=== PATIENT | male | born 1990 | race African-American/Black ===

== ENCOUNTER → 2016-10-24 | Outpatient (CLI) | payer OTHER ==
[2016-03-23 16:30] VITALS: BP 140/91
[~2016-10-24] MED LIST: AMLO10TA2 PO; AMLO10TA4 PO; CALC500T54 PO; INSU100I17 SQ; MYCO360T PO; NPH,100V5 SQ; PRED10TA16 PO; SEVE800T9 PO; TACR1CAP4 PO; magic mouth wash
== END | disposition home or self-care (01) ==
LOC: LAB 12:05
PROVIDERS: ATTEND Internal Medicine Nephrology
DX: N18.6 End stage renal disease (principal); D64.9 Anemia, unspecified; E55.9 Vitamin D deficiency, unspecified
CPT/HCPCS: 36415; 84132

== ENCOUNTER 2018-10-17 18:46 | Emergency (ER) | payer OTHER ==
[~2018-10-17] VITALS: Ht 162.6 cm; Wt 61.2 kg
[~2018-10-17 18:46] MED LIST changes: -AMLO10TA2 PO; +AMLO10TA8 PO
[2018-10-17 18:50] VITALS: BP 93/54
--- NOTE | 2018-10-17 19:13 | PHYS DOC ---
Past History Past Medical History: Hypertension, Renal Disease Additional Past Medical Histor: HTN on no meds. Kidney failure/transplant 2008. Past Surgical History: Other Additional Past Surgical Histo: Kidney transplant 2008 Smoking: Greater than 1 pack/day Alcohol Use: None Drug Use: Marijuana Adult General Chief Complaint Chief Complaint: FINGER INJURY HPI HPI 28-year-old male presents with left fifth digit pain. The patient woke up this morning with pain in his left little finger. He cannot think of any trauma or overuse from the day before. It is painful to extend it fully. He is able to move the finger. He feels like it is swollen compared to the other hand. She has not had anything like this before. No previous history with this finger. He denies any other complaints. Review of Systems Review of Systems Constitutional: Denies fever or chills [] Eyes: Denies change in visual acuity, redness, or eye pain [] HENT: Denies nasal congestion or sore throat [] Respiratory: Denies cough or shortness of breath [] Cardiovascular: No additional information not addressed in HPI [] GI: Denies abdominal pain, nausea, vomiting, bloody stools or diarrhea [] : Denies dysuria or hematuria [] Musculoskeletal: Left fifth digit pain[] Integument: Denies rash or skin lesions [] Neurologic: Denies headache, focal weakness or sensory changes [] Endocrine: Denies polyuria or polydipsia [] All other systems were reviewed and found to be within normal limits, except as documented in this note. Allergies Allergies Allergies Coded Allergies Type Severity Reaction Last Updated Verified iodine Allergy Unknown "I can't remember." 04/30/13 Yes shellfish derived Allergy Unknown 03/27/14 Yes Physical Exam Physical Exam Constitutional: Well developed, well nourished, no acute distress, non-toxic appearance. [] HENT: Normocephalic, atraumatic, bilateral external ears normal, oropharynx moist, no oral exudates, nose normal. [] Eyes: PERRLA, EOMI, conjunctiva normal, no discharge. [] Neck: Normal range of motion, no tenderness, supple, no stridor. [] Cardiovascular:Heart rate regular rhythm, no murmur [] Lungs & Thorax: Bilateral breath sounds clear to auscultation [] Abdomen: Bowel sounds normal, soft, no tenderness, no masses, no pulsatile masses. [] Skin: Warm, dry, no erythema, no rash. [] Back: No tenderness, no CVA tenderness. [] Extremities: Pain with palpation of left fifth proximal segment of the phalanx. Mild swelling of the area. No obvious deformity.[] Neurologic: Alert and oriented X 3, normal motor function, normal sensory function, no focal deficits noted. [] Psychologic: Affect normal, judgement normal, mood normal. [] Current Patient Data Vital Signs Vital Signs Date Time Temp Pulse Resp B/P (MAP) Pulse Ox O2 Delivery O2 Flow Rate FiO2 10/17/18 18:50 98.3 95 18 99 Room Air EKG EKG [] Radiology/Procedures Radiology/Procedures [] Impressions: FINGER(S) LEFT History: Swelling and pain Comparison: None. Findings: 3 views of the left hand with attention to the fifth digit are submitted. No acute fracture, dislocation, radiopaque foreign body, aggressive bone destruction is identified. There is some soft tissue swelling. Impression: 1. No acute osseous abnormality is identified. Electronically signed by: Paco Cuellar MD (10/17/2018 7:29 PM) [facility] DICTATED AND SIGNED BY: PACO CUELLAR MD DATE: 10/17/181928 CC: LORE BARON DO; PCP,NO ~ Course & Med Decision Making Course & Med Decision Making Pertinent Labs and Imaging studies reviewed. (See chart for details) The patient's x-rays are negative for acute fracture or dislocation. I believe he sprained his finger somehow. I have advised that he mirella tape for comfort for a day or 2. He'll take ibuprofen for discomfort. He is stable for discharge at this time. [] Dragon Disclaimer Dragon Disclaimer This electronic medical record was generated, in whole or in part, using a voice recognition dictation system. Departure Departure: Impression: Primary Impression: Sprain of finger of left hand Disposition: 01 HOME, SELF-CARE Condition: STABLE Referrals: PCP,UNKNOWN (PCP) Patient Instructions: Finger Sprain, [id number] Problem Qualifiers Primary Impression: Sprain of finger of left hand Encounter type: initial encounter Finger: little finger Sprain of finger site: unspecified site Qualified Codes: S63.617A - Unspecified sprain of left little finger, initial encounter LORE BARON DO October 17, 2018 19:13
--- NOTE | 2018-10-17 19:32 | RAD ---
FINGER(S) LEFT History: Swelling and pain Comparison: None. Findings: 3 views of the left hand with attention to the fifth digit are submitted. No acute fracture, dislocation, radiopaque foreign body, aggressive bone destruction is identified. There is some soft tissue swelling. Impression: 1. No acute osseous abnormality is identified. Electronically signed by: Marco Seymour MD (10/17/2018 7:29 PM) [facility]
== END 2018-10-17 19:42 | disposition home or self-care (01) ==
LOC: ER 18:46
DX: S63.617A Unspecified sprain of left little finger, initial encounter (principal); I10 Essential (primary) hypertension; F17.200 Nicotine dependence, unspecified, uncomplicated; Z91.013 Allergy to seafood; Z88.8 Allergy status to other drugs, medicaments and biological substances; X58.XXXA Exposure to other specified factors, initial encounter; Y93.89 Activity, other specified; Y92.89 Other specified places as the place of occurrence of the external cause; Y99.8 Other external cause status
CPT/HCPCS: 73140; 99284

== ENCOUNTER 2019-01-06 22:48 | Emergency (ER) | payer MEDICAID, OTHER ==
[~2019-01-06] VITALS: Ht 162.6 cm; Wt 61.2 kg
[2019-01-06 23:02] VITALS: BP 127/66
[2019-01-06] MEDS ORDERED: HYDR-3165 PO (23:17)
[2019-01-06] MEDS ORDERED: PENI500T PO (23:17)
[2019-01-06] MEDS ORDERED: ORPH-16 PO (23:17)
--- NOTE | 2019-01-06 23:17 | PHYS DOC ---
Past History Past Medical History: Renal Failure Additional Past Medical Histor: HTN on no meds. Kidney failure/transplant 2008. Past Surgical History: No Surgical History Additional Past Surgical Histo: Kidney transplant 2008 Smoking: Greater than 1 pack/day Alcohol Use: Occasionally Drug Use: Marijuana Adult General Chief Complaint Chief Complaint: SORE THROAT HPI HPI Patient is a 28-year-old male who presents with complaint of left-sided facial swelling, dental pain and sore throat been present for the last couple of days. He indicates the swelling has gotten worse today. He denies any fever. He denies any nausea or vomiting. He rates pain an 8 out of 10.[] Review of Systems Review of Systems Constitutional: Denies fever or chills [] HENT: Positive dental pain and sore throat [] Respiratory: Denies cough or shortness of breath [] Cardiovascular: No additional information not addressed in HPI [] Musculoskeletal: Complains of upper back pain [] Allergies Allergies Allergies Coded Allergies Type Severity Reaction Last Updated Verified iodine Allergy Unknown "I can't remember." 04/30/13 Yes shellfish derived Allergy Unknown 03/27/14 Yes Physical Exam Physical Exam Constitutional: Well developed, well nourished, no acute distress, non-toxic appearance. [] HENT: Normocephalic, atraumatic, dentition demonstrates caries in the right lower second molar with swelling of gums. [] Neck: Normal range of motion, no tenderness, supple, no stridor. [] Cardiovascular:Heart rate regular rhythm, no murmur [] Lungs & Thorax: Bilateral breath sounds clear to auscultation [] Back: There is tenderness to palpation with mild spasm noted in the trapezius musculature as well as upper thoracic paraspinals. [] Current Patient Data Vital Signs Vital Signs Date Time Temp Pulse Resp B/P (MAP) Pulse Ox O2 Delivery O2 Flow Rate FiO2 01/06/19 23:02 98.9 91 16 100 Room Air EKG EKG [] Radiology/Procedures Radiology/Procedures [] Course & Med Decision Making Course & Med Decision Making Pertinent Labs and Imaging studies reviewed. (See chart for details) [] Dragon Disclaimer Dragon Disclaimer This electronic medical record was generated, in whole or in part, using a voice recognition dictation system. Departure Departure: Impression: Primary Impression: Pain due to dental caries Additional Impression: Upper back pain Disposition: 01 HOME, SELF-CARE Condition: STABLE Referrals: PCP,NO (PCP) Patient Instructions: Back Pain, Adult, Dental Abscess, Dental Pain Scripts Orphenadrine Citrate (ORPHENADRINE CITRATE) 100 Mg Tablet.er 1 TAB PO BID PRN for MUSCLE SPASMS, #14 TAB Prov: LANG JOHNSON Jr. DO 01/06/19 Penicillin V Potassium (PENICILLIN V POTASSIUM) 500 Mg Tablet 1 TAB PO QID for infection, #40 TAB Prov: LANG JOHNSON Jr. DO 01/06/19 Hydrocodone Bit/Acetaminophen (NORCO 5-325 TABLET) 1 Each Tablet 1 TAB PO PRN Q6HRS PRN for PAIN, #12 TAB 0 Refills Prov: LANG JOHNSON Jr. DO 01/06/19 Problem Qualifiers LANG JOHNSON Jr. DO Jan 06, 2019 23:17
[2019-01-06] MEDS ORDERED: CLINDAMYCIN HCL 150 MG CAPSULE PO ONE (23:30)
[2019-01-06] MEDS ORDERED: HYDROcodone/APAP 7.5/325MG 1 TAB TABLET PO ONE (23:30)
[2019-01-06] MEDS ORDERED: CYCLOBENZAPRINE 10 MG TABLET. PO ONE (23:30)
== END 2019-01-06 23:43 | disposition home or self-care (01) ==
LOC: ER 22:48
DX: K02.9 Dental caries, unspecified (principal); M54.6 Pain in thoracic spine; J02.9 Acute pharyngitis, unspecified; I12.9 Hypertensive chronic kidney disease with stage 1 through stage 4 chronic kidney disease, or unspecified chronic kidney disease; N18.9 Chronic kidney disease, unspecified; F17.200 Nicotine dependence, unspecified, uncomplicated; Z94.0 Kidney transplant status; Z91.013 Allergy to seafood; Z88.8 Allergy status to other drugs, medicaments and biological substances
CPT/HCPCS: 99284

== ENCOUNTER 2019-05-09 09:31 | Emergency (ER) | payer MEDICAID ==
[~2019-05-09] VITALS: Ht 162.6 cm; Wt 59.0 kg
[~2019-05-09 09:31] MED LIST changes: +HYDR-3165 PO; +ORPH-16 PO; +PENI500T PO
[2019-05-09 09:44] VITALS: BP 147/63
[2019-05-09] MEDS ORDERED: HYDR10FO3 RC (09:59)
[2019-05-09] MEDS ORDERED: POLY119P4 PO (09:59)
[2019-05-09] MEDS ORDERED: TRAM50TA PO (09:59)
--- NOTE | 2019-05-09 10:00 | PHYS DOC ---
Past History Past Medical History: Renal Failure Additional Past Medical Histor: HTN on no meds. Kidney failure/transplant 2008. Past Surgical History: Other Additional Past Surgical Histo: Kidney transplant 2009, PARATHYROIDECTOMY Smoking: Greater than 1 pack/day Alcohol Use: Occasionally Drug Use: Marijuana Adult General Chief Complaint Chief Complaint: HEMORRHOIDS HPI HPI Patient is a 68-year-old male presents complaining of a hemorrhoid. The discomfort has been present for approximately the past week, getting worse over time. He has had to have internal hemorrhoids treated previously. He denies any blood. Increased pain with sitting. He reports sitting a large amount of each day, playing video games, seated on a wooden chair. Denies any trauma. Denies any anal receptive intercourse. Denies any rashes or bruising. He has taken no medicine for the discomfort. He is not on any blood thinners or NSAIDs at this time. Discomfort is moderate to severe in intensity. No radiation of the discomfort. 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 He has had previous kidney transplants. He is currently on dialysis, Sunday, , and Sunday.[] Review of Systems Review of Systems Constitutional: Denies fever or chills [] Eyes: Denies change in visual acuity, redness, or eye pain [] HENT: Denies nasal congestion or sore throat [] Respiratory: Denies cough or shortness of breath [] Cardiovascular: No chest pain or palpitations[] GI: Denies abdominal pain, nausea, vomiting, bloody stools or diarrhea, see history of present illness [] : Denies dysuria or hematuria [] Musculoskeletal: Denies back pain or joint pain [] Integument: Denies rash or skin lesions [] Neurologic: Denies headache, focal weakness or sensory changes [] Endocrine: Denies polyuria or polydipsia [] All other systems were reviewed and found to be within normal limits, except as documented in this note. Allergies Allergies Allergies Coded Allergies Type Severity Reaction Last Updated Verified iodine Allergy Unknown "I can't remember." 04/30/13 Yes shellfish derived Allergy Unknown 03/27/14 Yes Physical Exam Physical Exam Constitutional: Well developed, well nourished, no acute distress, non-toxic appearance. [] HENT: Normocephalic, atraumatic, bilateral external ears normal, oropharynx moist, no oral exudates, nose normal. [] Eyes: PERRLA, EOMI, conjunctiva normal, no discharge. [] Neck: Normal range of motion, no tenderness, supple, no stridor. [] Cardiovascular:Heart rate regular rhythm, no murmur [] Lungs & Thorax: Bilateral breath sounds clear to auscultation [] Abdomen: Bowel sounds normal, soft, no tenderness, no masses, no pulsatile masses. Rectal exam shows an external hemorrhoid at the 4 to 5:00 region. No thrombosis. No bleeding. No fistula tracts. [] Skin: Warm, dry, no erythema, no rash. [] Back: No tenderness, no CVA tenderness. [] Extremities: No tenderness, no cyanosis, no clubbing, ROM intact, no edema. [] Neurologic: Alert and oriented X 3, normal motor function, normal sensory function, no focal deficits noted. [] Psychologic: Affect normal, judgement normal, mood normal. [] Current Patient Data Vital Signs Vital Signs Date Time Temp Pulse Resp B/P (MAP) Pulse Ox O2 Delivery O2 Flow Rate FiO2 05/09/19 09:44 97.7 112 18 98 Room Air EKG EKG [] Radiology/Procedures Radiology/Procedures [] Course & Med Decision Making Course & Med Decision Making Pertinent Labs and Imaging studies reviewed. (See chart for details) Emergency department course: Patient arrived, was placed in bed, and tolerated exam well. Findings and plan were discussed with the patient who voiced understanding. All questions were answered. He was discharged in improved condition. Medical decision making: Patient appears to have an external hemorrhoid without thrombosis. Will prescribe medication along with education for hemorrhoid treatment. No evidence of intra-abdominal pathology. No evidence of bleeding diathesis.[] Dragon Disclaimer Dragon Disclaimer This electronic medical record was generated, in whole or in part, using a voice recognition dictation system. Departure Departure: Impression: Primary Impression: External hemorrhoids without complication Disposition: HOME, SELF-CARE Condition: IMPROVED Referrals: PCP,JIN (PCP) Patient Instructions: Hemorrhoids, Sitz Bath Additional Instructions: Follow-up with your regular doctor in 2 days. If you do not have regular doctor list of local clinics will be provided. Perform a sitz bath after each bowel movement, and at least 4 times a day. Increase the fiber in your diet or use the MiraLAX as prescribed to avoid constipation and bearing down when having a bowel movement because that will make hemorrhoids worse. Sit on a donut ring to help take pressure off of the area. Return to the ER if worsening pain, increased bleeding, or any other concerns. Scripts Polyethylene Glycol 3350 (MIRALAX) 119 Gm Powder 17 GM PO DAILY for constipation, #255 GM 0 Refills dissolve in water Prov: MEDHAT LUJAN DO 05/09/19 Tramadol Hcl (TRAMADOL HCL) 50 Mg Tablet 50 MG PO PRN Q6HRS PRN for PAIN, #20 TAB Prov: MEDHAT LUJAN DO 05/09/19 Hydrocortisone/Pramoxine (PROCTOFOAM-HC 1%-1% FOAM) 10 Gm Foam 1 APPFUL RC BID for hemorrhoids, #10 GM 1 Refill Prov: MEDHAT LUJAN DO 05/09/19 MEDHAT LUJAN DO May 09, 2019 10:00
== END 2019-05-09 10:05 | disposition home or self-care (01) ==
LOC: ER 09:31
DX: K64.4 Residual hemorrhoidal skin tags (principal); I12.0 Hypertensive chronic kidney disease with stage 5 chronic kidney disease or end stage renal disease; N18.6 End stage renal disease; F17.200 Nicotine dependence, unspecified, uncomplicated; Z99.2 Dependence on renal dialysis; Z94.0 Kidney transplant status; Z88.8 Allergy status to other drugs, medicaments and biological substances; Z91.018 Allergy to other foods
CPT/HCPCS: 99283

== ENCOUNTER → 2019-07-14 | Outpatient (CLI) | payer MEDICAID ==
[~2019-07-14] MED LIST changes: +HYDR10FO3 RC; +POLY119P4 PO; +TRAM50TA PO
== END | disposition home or self-care (01) ==
LOC: LAB 08:34
PROVIDERS: ATTEND Internal Medicine Nephrology
DX: Z01.818 Encounter for other preprocedural examination (principal)
CPT/HCPCS: 36415; 84132

== ENCOUNTER 2019-10-12 07:36 | Emergency (ER) | payer MEDICARE, MEDICAID ==
[~2019-10-12] VITALS: Ht 162.6 cm; Wt 59.0 kg
[~2019-10-12 07:36] MED LIST changes: -TACR1CAP4 PO; +TACR1CAP5 PO
[2019-10-12 07:39] VITALS: BP 119/51
[2019-10-12] MEDS ORDERED: HYDR25SU18 RC (07:58)
--- NOTE | 2019-10-12 07:58 | PHYS DOC ---
Past History Past Medical History: Renal Failure Additional Past Medical Histor: HTN on no meds. Kidney failure/transplant 2009. Past Surgical History: Other Additional Past Surgical Histo: Kidney transplant 2009, PARATHYROIDECTOMY Smoking: Greater than 1 pack/day Alcohol Use: Occasionally Drug Use: Marijuana General Adult EDM: Chief Complaint: HEMORRHOIDS HPI: HPI: Patient is a 29-year-old male with history of hemorrhoids who presents today with a hemorrhoid that he states is been flaring up. In the past he has had cream but that has not worked he has had suppositories which he states in the past it worked well for him. He denies any bleeding. He denies any fever chills or sweats. He does state it is painful when he strains to have a bowel movement. [] Review of Systems: Review of Systems: Constitutional: Denies fever or chills Eyes: Denies change in visual acuity HENT: Denies nasal congestion or sore throat Respiratory: Denies cough or shortness of breath Cardiovascular: Denies chest pain or edema GI: Per HPI : Denies dysuria Musculoskeletal: Denies back pain or joint pain Integument: Denies rash Neurologic: Denies headache, focal weakness or sensory changes Endocrine: Denies polyuria or polydipsia Lymphatic: Denies swollen glands Psychiatric: Denies depression or anxiety Heart Score: Risk Factors: Risk Factors: DM, Current or recent (<one month) smoker, HTN, HLP, family history of CAD, obesity. Risk Scores: Score 0 - 3: 2.5% MACE over next 6 weeks - Discharge Home Score 4 - 6: 20.3% MACE over next 6 weeks - Admit for Clinical Observation Score 7 - 10: 72.7% MACE over next 6 weeks - Early Invasive Strategies Allergies: Allergies: Allergies Coded Allergies Type Severity Reaction Last Updated Verified iodine Allergy Unknown "I can't remember." 04/30/13 Yes shellfish derived Allergy Unknown 03/27/14 Yes Physical Exam: PE: Constitutional: Well developed, well nourished, no acute distress, non-toxic appearance. [] Cardiovascular:Heart rate regular rhythm, no murmur [] Lungs & Thorax: Bilateral breath sounds clear to auscultation [] Abdomen: He does have a small smaller than a marble sized nonthrombosed external hemorrhoid at 9:00. [] Skin: Warm, dry, no erythema, no rash. [] Back: No tenderness, no CVA tenderness. [] Extremities: No tenderness, no cyanosis, no clubbing, ROM intact, no edema. [] Neurologic: Alert and oriented X 3, normal motor function, normal sensory function, no focal deficits noted. [] Psychologic: Anxious [] Current Patient Data: Vital Signs: Vital Signs Date Time Temp Pulse Resp B/P (MAP) Pulse Ox O2 Delivery O2 Flow Rate FiO2 10/12/19 07:39 97.7 97 16 119/51 (73) 94 Room Air EKG: EKG: [] Radiology/Procedures: Radiology/Procedures: [] Course & Med Decision Making: Course & Med Decision Making Pertinent Labs and Imaging studies reviewed. (See chart for details) [] Dragon Disclaimer: Dragon Disclaimer: This electronic medical record was generated, in whole or in part, using a voice recognition dictation system. Departure Departure: Impression: Primary Impression: External hemorrhoids without complication Disposition: 01 HOME/RESIDENCE PRIOR TO ADM Condition: STABLE Referrals: PCP,NO (PCP) Patient Instructions: Hemorrhoids Scripts Hydrocortisone Acetate (ANUSOL-HC) 25 Mg Supp.rect 1 SUPP RC BID for hemorrhoids for 14 Days, #28 SUPP 0 Refills Prov: SANDEEP SANTACRUZ DO 10/12/19 SANDEEP SANTACRUZ DO October 12, 2019 07:58
== END 2019-10-12 08:00 | disposition home or self-care (01) ==
LOC: ER 07:36
DX: K64.4 Residual hemorrhoidal skin tags (principal); Z88.8 Allergy status to other drugs, medicaments and biological substances; Z91.013 Allergy to seafood; F17.200 Nicotine dependence, unspecified, uncomplicated; I12.9 Hypertensive chronic kidney disease with stage 1 through stage 4 chronic kidney disease, or unspecified chronic kidney disease; N18.9 Chronic kidney disease, unspecified
CPT/HCPCS: 99282

== ENCOUNTER 2020-05-03 18:35 | Emergency (ER) | payer MEDICARE, MEDICAID ==
[~2020-05-03] VITALS: Ht 165.1 cm; Wt 59.2 kg
[~2020-05-03 18:35] MED LIST changes: +AMLO-187 PO; -AMLO10TA8 PO; +HYDR25SU18 RC
--- NOTE | 2020-05-03 18:54 | PHYS DOC ---
Past History Past Medical History: Renal Failure Additional Past Medical Histor: HTN on no meds. Kidney failure/transplant 2009. Past Surgical History: Other Additional Past Surgical Histo: Kidney transplant 2009, PARATHYROIDECTOMY Smoking: Greater than 1 pack/day Alcohol Use: None Drug Use: Marijuana General Adult EDM: Chief Complaint: SHORTNESS OF BREATH HPI: HPI: History obtained from patient. Patient is a 29-year-old male with history of atrophic kidneys who presents with chief complaint of shortness of breath. He states that shortness of breath began yesterday. States it is gradual in onset. He states it seems to be progressively worsening. Denies any chest pain. Denies orthopnea or bendopnea. Does receive dialysis on Mondays, Wednesdays, and Fridays. Did receive full dialysis treatment today. Denies cough or fever. Denies known exposure to Covid. Has had fluid on his lungs in the past. Denies any recent surgeries. Does note he smokes marijuana occasionally. Denies any abdominal pain or nausea. Denies vomiting. Eyes runny nose or sore throat. Denies history of pulmonary embolism. Denies syncope. Denies any exertional component to her shortness of breath that he states. Denies recent travel. Patient denies any history of immobilization greater than 48 hours, recent hospitalizations, recent surgery, recent trauma, , oral contraceptive usage, hormone replacement therapy, air travel greater than 8 hours, recent infectious disease, or general deterioration of their overall condition. Review of Systems: Review of Systems: Constitutional: Denies fever or chills Eyes: Denies change in visual acuity HENT: Denies nasal congestion or sore throat Respiratory: Denies cough or shortness of breath Cardiovascular: Denies chest pain or edema GI: Denies abdominal pain, nausea, vomiting, bloody stools or diarrhea : Denies dysuria Musculoskeletal: Denies back pain or joint pain Integument: Denies rash Neurologic: Denies headache, focal weakness or sensory changes Endocrine: Denies polyuria or polydipsia Lymphatic: Denies swollen glands Psychiatric: Denies depression or anxiety Allergies: Allergies: Allergies Coded Allergies Type Severity Reaction Last Updated Verified iodine Allergy Unknown "I can't remember." 04/30/13 Yes shellfish derived Allergy Unknown 03/27/14 Yes Physical Exam: PE: Constitutional: Well developed, well nourished, no acute distress, non-toxic appearance. [] HENT: Normocephalic, atraumatic, bilateral external ears normal, oropharynx moist, no oral exudates, nose normal. [] Eyes: PERRLA, EOMI, conjunctiva normal, no discharge. [] Neck: Normal range of motion, no tenderness, supple, no stridor. [] Cardiovascular:Heart rate regular rhythm, no murmur. Left upper extremity fistula with audible bruit and palpable thrill. [] Lungs & Thorax: Bilateral breath sounds clear to auscultation [] Abdomen: Bowel sounds normal, soft, no tenderness, no masses, no pulsatile masses. [] Skin: Warm, dry, no erythema, no rash. [] Back: No tenderness, no CVA tenderness. [] Extremities: No tenderness, no cyanosis, no clubbing, ROM intact, no edema. [] Neurologic: Alert and oriented X 3, normal motor function, normal sensory function, no focal deficits noted. [] Psychologic: Affect normal, judgement normal, mood normal. [] Current Patient Data: Labs: Laboratory Tests Test 05/03/20 19:02 White Blood Count 4.0 x10^3/uL Red Blood Count 3.97 x10^6/uL Hemoglobin 12.0 g/dL Hematocrit 38.0 % Mean Corpuscular Volume 96 fL Mean Corpuscular Hemoglobin 30 pg Mean Corpuscular Hemoglobin Concent 32 g/dL Red Cell Distribution Width 15.9 % Platelet Count 182 x10^3/uL Neutrophils (%) (Auto) 57 % Lymphocytes (%) (Auto) 24 % Monocytes (%) (Auto) 10 % Eosinophils (%) (Auto) 9 % Basophils (%) (Auto) 0 % Neutrophils # (Auto) 2.2 x10^3uL Lymphocytes # (Auto) 0.9 x10^3/uL Monocytes # (Auto) 0.4 x10^3/uL Eosinophils # (Auto) 0.0 x10^3/uL Basophils # (Auto) 0.0 x10^3/uL Sodium Level 142 mmol/L Potassium Level 3.1 mmol/L Chloride Level 98 mmol/L Carbon Dioxide Level 31 mmol/L Anion Gap 13 Blood Urea Nitrogen 24 mg/dL Creatinine 11.3 mg/dL Estimated GFR (Cockcroft-Gault) 6.6 BUN/Creatinine Ratio 2 Glucose Level 83 mg/dL Calcium Level 7.8 mg/dL Total Bilirubin 0.5 mg/dL Aspartate Amino Transf (AST/SGOT) 14 U/L Alanine Aminotransferase (ALT/SGPT) 13 U/L Alkaline Phosphatase 44 U/L Total Protein 8.6 g/dL Albumin 4.4 g/dL Albumin/Globulin Ratio 1.0 Current Medications Medications (Trade) Dose Ordered Sig/Jovani Route PRN Reason Start Time Stop Time Status Last Admin Dose Admin Iohexol (Omnipaque 350 Mg/ml) 100 ml 1X ONCE IV 05/03/20 19:00 05/03/20 19:01 DC 05/03/20 20:00 Diphenhydramine HCl (Benadryl) 25 mg 1X ONCE IVP 05/03/20 19:00 05/03/20 19:01 DC 05/03/20 19:21 Vital Signs: Vital Signs Date Time Temp Pulse Resp B/P (MAP) Pulse Ox O2 Delivery O2 Flow Rate FiO2 05/03/20 18:43 98.2 107 16 94/56 (69) 97 Room Air EKG: EKG: EKG consistent with normal sinus rhythm. Ventricular rate of 86 bpm. [place] normal. Intervals normal. No acute ischemic changes appreciated. [] Radiology/Procedures: Radiology/Procedures: [place] [id number] IMAGING REPORT Signed PATIENT: CHARLES MOTTA ACCOUNT: [id number] : 1990 LOCATION: ER AGE: 29 SEX: M EXAM STATUS: REG ER ORD. PHYSICIAN: TJ CAAL DO REASON: SOB. r/o PE, OMNI 350, 75ml PROCEDURE: CT ANGIOGRAPHY CHEST Exam: CT of chest with contrast INDICATION: Shortness of breath TECHNIQUE: Sequential axial images through the chest obtained following the administration of 75 mL of Omni 350 IV contrast. Sagittal and coronal reformatted images were reconstructed from the axial data and reviewed. 3-D reformatted images were reconstructed from the axial data and reviewed. Comparisons: None FINDINGS: Utilized portions of the thyroid are unremarkable. There are several prominent mildly enlarged prevascular and pretracheal lymph nodes. Heart size is normal. No pericardial effusion. Thoracic aorta has a normal course and caliber. Pulmonary artery is not enlarged. There is a stent noted within the SVC which is occluded. Extensive venous collateral vasculature noted in the right paraspinal soft tissues extending to the azygos vein. Additionally numerous collateral vessels noted along the right anterior chest wall. No pulmonary embolus identified within the main, lobar or segmental pulmonary arteries. Airways are patent. No consolidation or pneumothorax. No suspicious lung nodules. No pleural effusion or thickening. Cholelithiasis. Kidneys are atrophic bilaterally. No suspicious osseous lesions or acute fractures. IMPRESSION: 1. No pulmonary embolus identified within the main, lobar or segmental pulmonary arteries. 2. Metallic stent noted within the SVC which is occluded. There is secondary collateral vasculature in the chest. 3. Cholelithiasis. 4. Atrophic appearance of the kidneys bilaterally. Correlate with kidney function/history. Exposure: One or more of the following in the visualized dose reduction techniques were utilized for this examination: 1. Automated exposure control 2. Adjustment of the MA and/or KV according to patient size 3. Use of iterative of reconstructive technique Electronically signed by: Cathy Liao MD (05/03/2020 8:28 PM) [facility] DICTATED AND SIGNED BY: CATHY LIAO MD DATE: 05/03/202027 CC: PCP,JIN; TJ CAAL DO ~MTH0 0 [] Heart Score: Risk Factors: Risk Factors: DM, Current or recent (<one month) smoker, HTN, HLP, family hist ory of CAD, obesity. Risk Scores: Score 0 - 3: 2.5% MACE over next 6 weeks - Discharge Home Score 4 - 6: 20.3% MACE over next 6 weeks - Admit for Clinical Observation Score 7 - 10: 72.7% MACE over next 6 weeks - Early Invasive Strategies Course & Med Decision Making: Course & Med Decision Making Pertinent Labs and Imaging studies reviewed. (See chart for details) [] Patient is a 29-year-old male who presents with chief complaint of shortness of breath that has began gradually over the past 2 days. Initial EKG without ischemic changes. CT imaging of his chest was obtained given he denies any infectious symptoms to explain his shortness of breath. This was negative for pulmonary emboli or effusions. Basic labs obtained were also unremarkable. He does have severely elevated creatinine but does receive dialysis 3 times weekly. Electrolytes within normal limits. On repeat examination patient states his symptoms have improved. He states he continues to have no chest pain at all. Covid swab was obtained and pending. No adventitious lung sounds on repeat examination. His vital signs remained stable including normal oxygenation on room air. Overall very low suspicion for ACS equivalent. He denies any history of coronary artery disease. Low risk heart score. Overall I do feel he is appropriate for discharge home with close follow-up. He was instructed return in 12 to 24 hours should his symptoms not improve or worsen. He did express understanding. Instructed to follow-up with his primary care physician in the next 2 to 3 days. Stable for discharge home. COVID-19 CRITERIA: The patient was evaluated during the global COVID-19 pandemic, and that diagnosis was suspected/considered upon their initial presentation. Their evaluation, treatment and testing was consistent with current guidelines for patients who present with complaints or symptoms that may be related to COVID-19. Dragon Disclaimer: Dragon Disclaimer: This electronic medical record was generated, in whole or in part, using a voice recognition dictation system. Departure Departure: Impression: Primary Impression: Shortness of breath Additional Impression: ESRD (end stage renal disease) Disposition: 01 DC HOME SELF CARE/HOMELESS Condition: STABLE Referrals: PCPJIN (PCP) NANNETTE PEREZ MD Patient Instructions: End Stage Kidney Disease Additional Instructions: You have been tested for or diagnosed with COVID-19. It is an infection caused by a new type of coronavirus. COVID-19 will cause cold-like or mild flu symptoms in most. It can cause more severe symptoms like problems breathing in some. There is no treatment for COVID-19. The body will clear the infection over time. Self-care will help to ease discomfort. Steps to Take: Self-Care Rest as needed. Healthy habits may help you feel better. Steps include: Choose healthy foods including fruits and vegetables. Drink water throughout the day. Get plenty of sleep each night. If you smoke, try to quit. It may ease breathing. Avoid alcohol. Keep Others Healthy The virus can spread to others. Droplets are released every time you sneeze or cough. The droplets can get into the mouth, nose, or eyes of people near you and lead to infection. To lower the chances of spreading COVID-19 to others: Stay at home until your doctor has said it is safe to leave. If you tested positive this will mean staying isolated until both of the following are true: At least 7 days have passed since the start of illness. You are free of fever for at least 72 hours without the use of medicine. During this time: - Avoid public areas, events, or transportation. Do not return to work or [email or web address] until your doctor has said it is safe to do so. - Call ahead if you need to go to a medical center. Let them know you may have COVID-19. It will help them guide you where to go. They may also ask you to wear a facemask when you come to the office. - If you call for emergency medical services, let them know you may have COVID- 19. While at home: - Try to avoid close contact with others. Stay about 6 feet away. - If possible, spend most of your time in a separate room from others. - Use a face mask if you will be in close contact with others such as sharing a room or vehicle. - Have someone wipe down common surfaces in the home. Use household welder production line arc every day on areas like doorknobs, counters, or sinks. - Cough or sneeze into a tissue. Throw the tissue away right after use. If a tissue is not available, cough or sneeze into your elbow. - Wash your hands often. Wash them after sneezing or coughing. Use soap and water and wash for at least 20 seconds. Alcohol based hand radiator cleaner can be used if soap and water is not available. - Do not prepare food for others. Avoid sharing personal items like forks, spoons, or toothbrushes. - Avoid close contact with pets while you are sick. There is no evidence of the virus passing to pets. This is a safety step until more is known about this virus. Isolation can be frustrating. Social interaction can help. Keep in touch with friends and family through phone and tech options. You can still interact with others in your home, just keep a safe distance of about 6 feet. Follow-up: Your doctors office will check in with you to see if there are any changes in your health. You may be asked to keep track of symptoms to share with them. They will also let you know when you are clear to be in public again. Problems to Look Out For: Contact your doctor if your recovery is not going as you expect. Get emergency care if you have problems such as: - Trouble breathing - Nonstop chest pain or pressure - Changes in awareness, confusion, or problems waking - Lips or face have bluish color - Worsening of symptoms If you think you have an emergency, call for emergency medical services right away. [facility] May 03, 2020 18:54
[2020-05-03] MEDS ORDERED: IOHEXOL 350 MG/ML 100 ML VIAL. IV ONE (19:00)
[2020-05-03] MEDS ORDERED: diphenhydrAMINE 50 MG/ML VIAL IVP ONE (19:00)
[2020-05-03 19:36] LABS: RED BLOOD COUNT 3.97 x10^6/uL (4.30-5.70)
[2020-05-03 19:37] LABS: BASO % 0 % (0-3); EOS % 9 % (0-3); LYMPH # 0.9 x10^3/uL (1.0-4.8); LYMPH % 24 % (24-48); MEAN CORPUSCULAR HEMOGLOBIN 30 pg (25-35); MEAN CORPUSCULAR HGB CONC 32 g/dL (31-37); MEAN CORPUSCULAR VOLUME 96 fL (79-100); MONO % 10 % (0-9); NEUT # 2.2 x10^3uL (1.8-7.7); NEUT % 57 % (31-73); PLATELET COUNT 182 x10^3/uL (140-400); RED CELL DISTRIBUTION WIDTH 15.9 % (11.5-14.5)
[2020-05-03 19:38] LABS: MONO # 0.4 x10^3/uL (0.0-1.1)
[2020-05-03 20:16] LABS: ALBUMIN 4.4 g/dL (3.4-5.0); CALCIUM 7.8 mg/dL (8.5-10.1); CREATININE 11.3 mg/dL (0.7-1.3); GFR 6.6; TOTAL BILIRUBIN 0.5 mg/dL (0.2-1.0); TOTAL PROTEIN 8.6 g/dL (6.4-8.2)
[2020-05-03 20:17] LABS: POTASSIUM 3.1 mmol/L (3.5-5.1)
--- NOTE | 2020-05-03 20:31 | RAD ---
Exam: CT of chest with contrast INDICATION: Shortness of breath TECHNIQUE: Sequential axial images through the chest obtained following the administration of 75 mL of Omni 350 IV contrast. Sagittal and coronal reformatted images were reconstructed from the axial data and reviewed. 3-D reformatted images were reconstructed from the axial data and reviewed. Comparisons: None FINDINGS: Utilized portions of the thyroid are unremarkable. There are several prominent mildly enlarged prevascular and pretracheal lymph nodes. Heart size is normal. No pericardial effusion. Thoracic aorta has a normal course and caliber. Pulmonary artery is not enlarged. There is a stent noted within the SVC which is occluded. Extensive venous collateral vasculature noted in the right paraspinal soft tissues extending to the azygos vein. Additionally numerous collateral vessels noted along the right anterior chest wall. No pulmonary embolus identified within the main, lobar or segmental pulmonary arteries. Airways are patent. No consolidation or pneumothorax. No suspicious lung nodules. No pleural effusion or thickening. Cholelithiasis. Kidneys are atrophic bilaterally. No suspicious osseous lesions or acute fractures. IMPRESSION: 1. No pulmonary embolus identified within the main, lobar or segmental pulmonary arteries. 2. Metallic stent noted within the SVC which is occluded. There is secondary collateral vasculature in the chest. 3. Cholelithiasis. 4. Atrophic appearance of the kidneys bilaterally. Correlate with kidney function/history. Exposure: One or more of the following in the visualized dose reduction techniques were utilized for this examination: 1. Automated exposure control 2. Adjustment of the MA and/or KV according to patient size 3. Use of iterative of reconstructive technique Electronically signed by: Cathy Monsalve MD (05/03/2020 8:28 PM) [facility]
[2020-05-03 20:59] VITALS: BP 104/57
--- NOTE | 2020-05-03 23:28 | EKG ---
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
== END 2020-05-03 21:03 | disposition home or self-care (01) ==
LOC: ER 18:35
DX: R06.02 Shortness of breath (principal); I12.0 Hypertensive chronic kidney disease with stage 5 chronic kidney disease or end stage renal disease; N18.6 End stage renal disease; F17.200 Nicotine dependence, unspecified, uncomplicated; F12.10 Cannabis abuse, uncomplicated; Z20.828 Contact with and (suspected) exposure to other viral communicable diseases; Z99.2 Dependence on renal dialysis; Z88.8 Allergy status to other drugs, medicaments and biological substances; Z91.013 Allergy to seafood
CPT/HCPCS: 36415; 71275; 80053; 85025; 85379; 93005; 96374; 99285; C9803; J1200; Q9967; U0003

== ENCOUNTER 2021-01-26 23:30 | Emergency (ER) | payer MEDICARE, MEDICAID ==
[~2021-01-26] VITALS: Ht 162.6 cm; Wt 59.0 kg
--- NOTE | 2021-01-27 00:48 | PHYS DOC ---
Past History Past Medical History: Renal Failure Additional Past Medical Histor: HTN on no meds. Kidney failure/transplantx2,last attempt 2008. Past Surgical History: Other Additional Past Surgical Histo: Kidney transplant 2009, PARATHYROIDECTOMY Smoking: Greater than 1 pack/day Alcohol Use: None Drug Use: Marijuana General Adult EDM: Chief Complaint: ABNORMAL LABS HPI: HPI: ".. My doctor office call said I should go to ED.. I missed my HD on Sun..." " My calcium was low... I get low calcium.. because of my para thyroids we taken out..." Patient is a 30 year old male who presents with hx of renal failure on hemodialysis and reports of low calcium on recent blood draw. Patient states his doctor office called and told him to go to the emergency department because of low calcium. Patient has history of chronic low calcium levels after parathyroidectomy. Patient supplements with oral calcium. Patient also has dialysis on Wednesdays and Fridays however he did not show up for his dialysis yesterday because he slept in. Patient normally follows at for his care. Patient does have a history of kidney transplant with kidney failure in 2008. Patient does continue to smoke approximately pack a day patient does use marijuana. Patient currently denies any nausea or vomiting. Patient denies any cramping of his muscles. Patient denies any fever or chills. Patient denies any history immunosuppression other than his underlying disease of renal failure. Patient has not had Covid vaccination. Patient has had previous episodes of hyperkalemia as well as pulmonary edema due to noncompliance with hemodialysis. Patient admits to noncompliance with meds as well as diet. Patient does continue to smoke tobacco and marijuana. Review of Systems: Review of Systems: Constitutional: Denies fever or chills Eyes: Denies change in visual acuity HENT: Denies nasal congestion or sore throat Respiratory: Complains of some mild increase of dyspnea which he attributes to missing his dialysis. Cardiovascular: Denies chest pain or edema GI: Denies abdominal pain, nausea, vomiting, bloody stools or diarrhea : Denies dysuria Musculoskeletal: Denies back pain or joint pain. Denies any cramping muscles Integument: Denies rash Neurologic: Denies headache, focal weakness or sensory changes Endocrine: Denies polyuria or polydipsia Lymphatic: Denies swollen glands Psychiatric: Denies depression or anxiety Family History: Family History: Noncontributory to presentation Current Medications: Current Meds: See nursing for home meds Allergies: Allergies: Allergies Coded Allergies Type Severity Reaction Last Updated Verified iodine Allergy Unknown "I can't remember." 04/30/13 Yes shellfish derived Allergy Unknown 03/27/14 Yes Physical Exam: PE: Constitutional: no acute distress, non-toxic appearance. [] HENT: Normocephalic, atraumatic, bilateral external ears normal, oropharynx moist, no oral exudates, nose normal. [] Eyes: PERRLA, EOMI, conjunctiva normal, no discharge. [] Neck: Normal range of motion, no tenderness, supple, no stridor. Extensive scarring to the neck and keloid formation. Cardiovascular:Heart rate regular rhythm, no murmur [] PMI slightly to the wrist Lungs & Thorax: Bilateral breath sounds equal with scattered wheezing and crackles throughout on auscultation [] Abdomen: Bowel sounds normal, soft, no tenderness, no masses, no pulsatile masses. [] Old surgical scars keloid formation Skin: Warm, dry, no erythema, no rash. Keloid formation Back: No tenderness, no CVA tenderness. [] Extremities: No tenderness, no cyanosis, no clubbing, ROM intact, no edema. Left arm AV shunt has good thrill. DTRs +2 patella and brachial. Keloid left groin Neurologic: Alert and oriented X 3, moves all extremities on request, does have distal sensory, no focal deficits noted. [] Psychologic: Affect anxious, judgement normal, mood normal. [] EKG: EKG: My interpretation of EKG at 00 55 hours shows a sinus rhythm rate of 70. With no acute morphology or findings of STEMI. Sinus rhythm. Time of EKG is 00 55 minutes. Radiology/Procedures: Radiology/Procedures: [][address] [address] IMAGING REPORT Signed PATIENT: CHARLES MOTTA ACCOUNT: [id number] : 1990 LOCATION: ER AGE: 30 SEX: M EXAM STATUS: DEP ER ORD. PHYSICIAN: CHRISTINA MCCOLLUM MD REASON: pul. edema PROCEDURE: PORTABLE CHEST 1V EXAM: XR CHEST 1V 01/27/2021 1:36 AM CLINICAL INDICATION: Pulmonary edema COMPARISON: Chest radiograph 07/24/2017 TECHNIQUE: AP upright view of the chest FINDINGS: The heart is normal in size. The lungs are adequately expanded. No consolidation, pleural effusion, or pneumothorax. No acute osseous abnormality. There is a vascular stent in the left upper extremity. IMPRESSION: No acute cardiopulmonary abnormality Electronically signed by: Princess White MD (01/27/2021 3:18 AM) [id number] DICTATED AND SIGNED BY: PRINCESS WHITE MD DATE: 01/27/21 0316 CC: CHRISTINA MCCOLLUM MD; PCP,UNKNOWN ~MTH0 0 Heart Score: C/O Chest Pain: N/A HEART Score for Chest Pain: HEART Score for Chest Pain Response (Comments) Value History Slighlty/Non-Suspicious 0 ECG Normal 0 Age < 45 0 Risk Factors 1 or 2 Risk Factors 1 Troponin < Normal Limit 0 Total 1 Risk Factors: Risk Factors: DM, Current or recent (<one month) smoker, HTN, HLP, family history of CAD, obesity. Risk Scores: Score 0 - 3: 2.5% MACE over next 6 weeks - Discharge Home Score 4 - 6: 20.3% MACE over next 6 weeks - Admit for Clinical Observation Score 7 - 10: 72.7% MACE over next 6 weeks - Early Invasive Strategies Course & Med Decision Making: Course & Med Decision Making Pertinent Labs and Imaging studies reviewed. (See chart for details) Patient did receive supplemental calcium IV as well as oral Tums. Patient refused to Kayexalate stating he would just go to the dialysis today. Patient informed of labs and need to complete dialysis , suspect he is starting to have some findings of pulmonary edema. Encourage patient to be more compliant with his dialysis regimen. Encourage patient stop smoking. Encourage to be compliant with meds and diet. Keep follow-up with primary care as well as nephrology. Encourage patient to get his hemodialysis today Patient continues calcium supplements previous directed. Impression: 1. Hypocalcemia of 6.4 2. Anemia hemoglobin 8.4 3. End-stage renal disease-on hemodialysis 4. Elevated BUN is 62 creatinine 19.3 5. Hyper magnesium 2.6 6. History of noncompliance meds, diet and dialysis follow-up [] Tasha Disclaimer: Tasha Disclaimer: This electronic medical record was generated, in whole or in part, using a voice recognition dictation system. Departure Departure: Referrals: PCP,UNKNOWN (PCP) Tasha Disclaimer This chart was dictated in whole or in part using Voice Recognition software in a busy, high-work load, and often noisy Emergency Department environment. It may contain unintended and wholly unrecognized errors or omissions. CHRISTINA MCCOLLUM MD Jan 27, 2021 00:48
[2021-01-27] MEDS: SODIUM POLYSTYRENE SULFONATE 15 GM/60 ML ORAL.SUSP. PO ONE (01:00)
[2021-01-27 01:09] LABS: BASO # 0.1 x10^3/uL (0.0-0.2); BASO % 3 % (0-3); EOS # 0.4 x10^3/uL (0.0-0.7); EOS % 9 % (0-3); HEMATOCRIT 26.1 % (39.0-53.0); HEMOGLOBIN 8.4 g/dL (13.0-17.5); LYMPH # 1.2 x10^3/uL (1.0-4.8); LYMPH % 27 % (24-48); MEAN CORPUSCULAR HEMOGLOBIN 31 pg (25-35); MEAN CORPUSCULAR HGB CONC 32 g/dL (31-37); MEAN CORPUSCULAR VOLUME 96 fL (79-100); MONO # 0.5 x10^3/uL (0.0-1.1); MONO % 12 % (0-9); NEUT # 2.1 x10^3uL (1.8-7.7); NEUT % 49 % (31-73); PLATELET COUNT 205 x10^3/uL (140-400); RED BLOOD COUNT 2.71 x10^6/uL (4.30-5.70); RED CELL DISTRIBUTION WIDTH 15.9 % (11.5-14.5); WHITE BLOOD COUNT 4.2 x10^3/uL (4.0-11.0)
--- NOTE | 2021-01-27 01:22 | EKG ---
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
[2021-01-27 01:31] LABS: CALCIUM 6.4 mg/dL (8.5-10.1); CREATININE 19.3 mg/dL (0.7-1.3); GFR 3.5; MAGNESIUM 2.6 mg/dL (1.8-2.4); POTASSIUM 4.3 mmol/L (3.5-5.1)
[2021-01-27] MEDS: CALCIUM CARBONATE 500 MG TAB.CHEW PO PRN (02:17)
[2021-01-27] MEDS: SODIUM BICARB ADULT 8.4% 50 MEQ/50 ML DISP.SYRIN. IV ONE (02:17)
[2021-01-27] MEDS: CALCIUM CHLORIDE 1,000 MG/10 ML DISP.SYRIN IV ONE (02:18)
[2021-01-27 02:45] VITALS: BP 105/55
--- NOTE | 2021-01-27 03:21 | RAD ---
EXAM: XR CHEST 1V 01/27/2021 1:36 AM CLINICAL INDICATION: Pulmonary edema COMPARISON: Chest radiograph 07/24/2017 TECHNIQUE: AP upright view of the chest FINDINGS: The heart is normal in size. The lungs are adequately expanded. No consolidation, pleural effusion, or pneumothorax. No acute osseous abnormality. There is a vascular stent in the left upper extremity. IMPRESSION: No acute cardiopulmonary abnormality Electronically signed by: Princess White MD (01/27/2021 3:18 AM) [id number]
== END 2021-01-27 03:20 | disposition home or self-care (01) ==
LOC: ER 23:30
DX: E87.6 Hypokalemia (principal); Z91.041 Radiographic dye allergy status; Z91.013 Allergy to seafood
CPT/HCPCS: 36415; 71045; 80048; 83735; 84484; 85025; 93005; 96374; 96375; 99285-25

== ENCOUNTER 2021-01-28 17:02 | Emergency (ER) | payer OTHER, MEDICAID ==
[~2021-01-28] VITALS: Ht 162.6 cm; Wt 59.3 kg
[2021-01-28 17:15] VITALS: BP 139/68
[2021-01-28] MEDS ORDERED: predniSONE 20 MG TABLET PO ONE (17:30)
[2021-01-28] MEDS ORDERED: IBUPROFEN 600 MG TABLET. PO ONE (17:30)
[2021-01-28] MEDS ORDERED: HYDROcodone/APAP 10/325 1 TAB TABLET PO ONE (17:30)
--- NOTE | 2021-01-28 17:44 | PHYS DOC ---
Past History Past Medical History: Renal Failure Additional Past Medical Histor: dailysis, renal failure, Past Surgical History: Other Additional Past Surgical Histo: kidney transplant x 2, parathyroid Smoking: Greater than 1 pack/day Alcohol Use: None Drug Use: Marijuana Adult General Chief Complaint Chief Complaint: FOOT INJURY PAIN HPI HPI Patient is a 30-year-old male presents to the emergency department chief complaint of left forefoot pain for the past several days. Patient reports waking up and noticing pain when he put his foot onto the floor. Patient denies injury. Patient reports it is at its worst when he first wakes up and it eases up throughout the day. Patient reports mild relief with compression garments, reports taking 400 mg of Advil yesterday with minimal relief. Patient reports his pain is a 6 out of 10. Patient denies any other physical complaints or physical concerns. Patient states she has end-stage renal disease that has hemodialysis on Sunday, reports having a full dialysis today without problems. Patient reports using a fistula on the left upper arm. Patient denies any recent fever or chills. 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 Patient denies any other physical complaints or physical concerns. Review of Systems Review of Systems 14 body systems of review of systems have been reviewed. See HPI for pertinent positives and negative responses, otherwise all other systems are negative, nonpertinent or noncontributory. Constitutional: Negative except as outlined in HPI above. Skin: Negative except as outlined in HPI above. Eyes: Negative except as outlined in HPI above. HENT: Negative except as outlined in HPI above. Respiratory: Negative except as outlined in HPI above. Cardiovascular: Negative except as outlined in HPI above. GI: Negative except as outlined in HPI above. : Negative except as outlined in HPI above. Musculoskeletal: Negative except as outlined in HPI above. Integument: Negative except as outlined in HPI above. Neurologic: Negative except as outlined in HPI above. Endocrine: Negative except as outlined in HPI above. Lymphatic: Negative except as outlined in HPI above. Psychiatric: Negative except as outlined in HPI above. Current Medications Current Medications Current Medications Medications (Trade) Dose Ordered Sig/Jovani Start Time Stop Time Status Last Admin Dose Admin Acetaminophen/ Hydrocodone Bitart (Lortab 10/325) 1 tab 1X ONCE 01/28/21 17:30 01/28/21 17:31 DC Ibuprofen (Motrin) 600 mg 1X ONCE 01/28/21 17:30 01/28/21 17:31 DC Prednisone (Prednisone) 60 mg 1X ONCE 01/28/21 17:30 01/28/21 17:31 DC Allergies Allergies Allergies Coded Allergies Type Severity Reaction Last Updated Verified iodine Allergy Unknown "I can't remember." 01/28/21 Yes shellfish derived Allergy Unknown 01/28/21 Yes Physical Exam Physical Exam Constitutional: Well developed, well nourished, no acute distress, non-toxic appearance. 30-year-old male in no apparent distress. HENT: Normocephalic, atraumatic. Eyes: Conjunctiva normal, no discharge. Neck: Normal range of motion, no stridor. Cardiovascular: No cyanosis appreciated, distal cap refill less than 2 seconds. Lungs & Thorax: Patient is in no respiratory distress, no audible adventitious lung sounds appreciated. Abdomen: Nontender, no abnormalities noted. Skin: Warm, dry, no erythema, no rash. Back: No tenderness, no deformities. Extremities: No tenderness, no cyanosis, no clubbing, ROM intact, no edema. Except for left foot forefoot area pain to palpation, no swelling, no edema, no crepitus, full range of motion of toes, 2+ dorsalis pedis/posterior tibial pulse. Patient has dialysis fistula left upper arm with satisfactory bruit and thrill. Neurologic: Alert and oriented X 3, normal motor function, normal sensory function, no focal deficits noted. Psychologic: Affect normal, judgement normal, mood normal. Current Patient Data Vital Signs Vital Signs Date Time Temp Pulse Resp B/P (MAP) Pulse Ox O2 Delivery O2 Flow Rate FiO2 01/28/21 17:15 98.3 94 18 139/68 99 Room Air EKG EKG [] Radiology/Procedures Radiology/Procedures [] Heart Score C/O Chest Pain: No Risk Factors: Risk Factors: DM, Current or recent (<one month) smoker, HTN, HLP, family history of CAD, obesity. Risk Scores: Risk Factors: DM, Current or recent (<one month) smoker, HTN, HLP, family history of CAD, obesity. Course & Med Decision Making Course & Med Decision Making Pertinent Labs and Imaging studies reviewed. (See chart for details) 22-year-old male, vital signs reviewed, presents to the emergency department concerning left foot pain. Physical examination consistent with metatarsalgia, this is unlikely a gouty arthritis. There is no great toe pain or pain of the toes. 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 Discussed at length with patient wearing good orthotics, close follow-up with podiatry for examination and recommendation of orthotic for work. Strict return to ER precautions or concerns, patient is amenable to the ED discharge planning, patient will be given pain medicine prior to discharge. Discussed with the patient all findings and diagnostic testing as well as the need to follow-up with their primary care provider for further evaluation and treatment or return to the ED if any new or worsening symptoms. Strict return precautions were also discussed at length, the patient voiced understanding and agreement with the discharge planning. The patient was nontoxic in appearance, in no apparent distress, and hemodynamically stable at the time of disposition. Dragon Disclaimer Dragon Disclaimer This electronic medical record was generated, in whole or in part, using a voice recognition dictation system. Departure Departure: Impression: Primary Impression: Metatarsalgia of left foot Disposition: 01 HOME / SELF CARE / HOMELESS Condition: GOOD Referrals: PCP,NO (PCP) Additional Instructions: You were seen today in the emergency department for pain to your left foot. You were diagnosed today with metatarsalgia, this is a inflammation to the forefoot area most often caused by poor arch support. I am treating you today in the emergency department with pain medications, please follow-up with a podiatry specialist as we discussed, a podiatry specialist will examine and recommend the proper type of arch support to help prevent this pain from returning. Please return to the emergency department for worsening symptoms or other concerns. Thank you for visiting our Emergency Department. It was a pleasure taking care of you today in the emergency department and we appreciate you trusting us with your care. If any additional problems come up don't hesitate to return to visit us. Please follow up with your primary care provider so they can plan additional care if needed and know about the problem that you had. If symptoms worsen come back to the Emergency Department. Any concerning symptoms that start such as chest pain, shortness of air, weakness or numbness on one side of the body, running high fevers or any other concerning symptoms return to the ER. You may consider using the podiatry group here located on [address] , [place]. [address] their telephone number is area code . Please call Sunday for an appointment. CARMEN GIBBONS APRN Jan 28, 2021 17:44
== END 2021-01-28 17:50 | disposition home or self-care (01) ==
LOC: ER 17:02
DX: M77.42 Metatarsalgia, left foot (principal); N18.6 End stage renal disease; F17.200 Nicotine dependence, unspecified, uncomplicated; Z99.2 Dependence on renal dialysis; Z94.0 Kidney transplant status; Z91.013 Allergy to seafood; Z88.8 Allergy status to other drugs, medicaments and biological substances
CPT/HCPCS: 99283; J7512

== ENCOUNTER 2021-07-12 12:23 | Emergency (ER) | payer OTHER, MEDICAID, MEDICARE ==
[~2021-07-12] VITALS: Ht 162.6 cm; Wt 59.3 kg
[2021-07-12 12:50] VITALS: BP 108/58
--- NOTE | 2021-07-12 13:27 | PHYS DOC ---
Past History Past Medical History: Renal Failure Additional Past Medical Histor: dailysis, renal failure, Past Surgical History: Other Additional Past Surgical Histo: kidney transplant x 2, parathyroid Smoking: Greater than 1 pack/day Alcohol Use: None Drug Use: Marijuana General Adult EDM: Chief Complaint: SORE THROAT HPI: HPI: 30-year-old male presents with sore throat. He has had a sore throat for about a week. He denies significant cough. Since it has not gone away he decided he should come in. It is painful when he swallows anything. He denies fever or chills. Review of Systems: Review of Systems: Constitutional: Denies fever or chills Eyes: Denies change in visual acuity HENT: sore throat Respiratory: Denies cough or shortness of breath Cardiovascular: Denies chest pain or edema GI: Denies abdominal pain, nausea, vomiting, bloody stools or diarrhea : Denies dysuria Musculoskeletal: Denies back pain or joint pain Integument: Denies rash Neurologic: Denies headache, focal weakness or sensory changes Endocrine: Denies polyuria or polydipsia Lymphatic: Denies swollen glands Psychiatric: Denies depression or anxiety Allergies: Allergies: Allergies Coded Allergies Type Severity Reaction Last Updated Verified iodine Allergy Unknown "I can't remember." 01/28/21 Yes shellfish derived Allergy Unknown 01/28/21 Yes Physical Exam: PE: Constitutional: Well developed, well nourished, no acute distress, non-toxic appearance. [] HENT: Normocephalic, atraumatic, bilateral external ears normal, oropharynx erythematous without obvious tonsillar exudates, swollen tonsils bilaterally, nose normal. [] Eyes: PERRLA, EOMI, conjunctiva normal, no discharge. [] Neck: Normal range of motion, no tenderness, supple, no stridor. [] Cardiovascular: Heart rate regular rhythm, no murmur [] Lungs & Thorax: Bilateral breath sounds clear to auscultation [] Abdomen: Bowel sounds normal, soft, no tenderness, no masses, no pulsatile masses. [] Skin: Warm, dry, no erythema, no rash. [] Back: No tenderness, no CVA tenderness. [] Extremities: No tenderness, no cyanosis, no clubbing, ROM intact, no edema. [] Neurologic: Alert and oriented X 3, normal motor function, normal sensory function, no focal deficits noted. [] Psychologic: Affect normal, judgement normal, mood normal. [] EKG: EKG: [] Radiology/Procedures: Radiology/Procedures: [] Heart Score: C/O Chest Pain: N/A Risk Factors: Risk Factors: DM, Current or recent (<one month) smoker, HTN, HLP, family history of CAD, obesity. Risk Scores: Score 0 - 3: 2.5% MACE over next 6 weeks - Discharge Home Score 4 - 6: 20.3% MACE over next 6 weeks - Admit for Clinical Observation Score 7 - 10: 72.7% MACE over next 6 weeks - Early Invasive Strategies Course & Med Decision Making: Course & Med Decision Making Pertinent Labs and Imaging studies reviewed. (See chart for details) The patient's rapid strep is negative. His rapid COVID and influenza are negative. This is likely another viral pharyngitis. I have advised supportive care. He is stable for discharge at this time. [] Dragon Disclaimer: Tasha Disclaimer: This electronic medical record was generated, in whole or in part, using a voice recognition dictation system. Departure Departure: Impression: Primary Impression: Viral pharyngitis Disposition: HOME / SELF CARE / HOMELESS Condition: STABLE Referrals: PATRICIO KRUEGER MD (PCP) Patient Instructions: Viral Pharyngitis LORE BARON DO Jul 12, 2021 13:27
[2021-07-12 14:00] LABS: INFLUENZA A PATIENT NEGATIVE (NEGATIVE); INFLUENZA B PATIENT NEGATIVE (NEGATIVE)
== END 2021-07-12 14:51 | disposition home or self-care (01) ==
LOC: ER 12:23
DX: J02.8 Acute pharyngitis due to other specified organisms (principal); N19 Unspecified kidney failure; F17.200 Nicotine dependence, unspecified, uncomplicated; Z20.822 Contact with and (suspected) exposure to COVID-19; Z94.0 Kidney transplant status; Z88.8 Allergy status to other drugs, medicaments and biological substances; Z91.013 Allergy to seafood
CPT/HCPCS: 87070; 87428; 87880; 99283